=== PATIENT | female | born 1965 | race Caucasian/White ===

== ENCOUNTER 2017-03-31 05:01 | Inpatient (IN) | payer BC ==
--- NOTE | ~2017-03-31 | OP ---
Record Of Operation [facility] [address] [place]. [address] NAME: FLAKO FITZGERALD : 63 STATUS : ADM IN PAT#: [id number] AGE: 51 ADM/REG DATE : 03/31/17 MR#: [id number] REPORT SERV DATE: 03/31/17 DICTATED BY: JULIA CARMEN DATE: 03/31/17 REPORT STATUS : Draft TRANSCRIBED BY: MODL DATE: 03/31/17 DATE OF PROCEDURE: 03/31/2017 PREOPERATIVE DIAGNOSES: 1. History of rectal cancer and pelvic radiation. 2. Status post abdominoperineal resection with perineal wound defect. POSTOPERATIVE DIAGNOSES: 1. History of rectal cancer and pelvic radiation. 2. Status post abdominoperineal resection with perineal wound defect. PROCEDURE: Closure of perineal wound defect with right vertical rectus abdominis myocutaneous flap. RESIDENT: Anshul Hubbard MD. ANESTHESIA: General endotracheal. COMPLICATIONS: None. ESTIMATED BLOOD LOSS: 50 mL. INDICATION FOR PROCEDURE: The patient is a 51-year-old female with history of rectal cancer. She has undergone preoperative chemotherapy and radiation therapy. She is now appropriate for a combined procedure with Dr. Pineda, who will perform abdominoperineal resection, following which I will close the defect with a vascularized flap to promote healing. DESCRIPTION OF PROCEDURE: Consent was obtained in the preoperative area. She was taken to the operating room and underwent general anesthesia. Her abdomen was prepped and draped in the usual fashion. She underwent abdominoperineal resection by Dr. Pineda. Evaluation at that point reveals a lower midline laparotomy. A flap was designed over the right rectus abdominis muscle extending from the superior aspect of the lower midline incision, elliptically backed down to the lower portion of the incision. This designed skin island was incised with a scalpel. Electrocautery was used to dissect through the soft tissues to the anterior rectus sheath. The anterior rectus sheath was then incised over the rectus muscle surrounding the skin flap. The rectus muscle was then divided superiorly at the costal margin and elevated from the posterior rectus sheath from superior to inferior. The inferior epigastric vessels were protected throughout the course. The flap was noted to have good viability. Once the flap was fully mobilized down to the pubic bone, an incision was made into the posterior rectus sheath. The VRAM flap was then passed through this incision in the posterior rectus sheath and rotated through the pelvis to the perineal defect. Notably, the posterior portion of the vagina had been repaired by Dr. Pineda. A portion of the VRAM flap at the superior aspect just behind the vaginal repair was de- epithelialized due to redundancy. This leaving a good bulk tissue to reinforce the vaginal repair. Next, the incision in the posterior rectus sheath was partially repaired by suturing it to the anterior sheath to preclude any hernia formation. Next, the anterior Record Of Operation [facility] [address] [facility] [place]. [address] NAME: FLAKO FITZGERALD : 63 STATUS : ADM IN [facility]#: [id number] AGE: 51 ADM/REG DATE : 03/31/17 MR#: [id number] REPORT SERV DATE: 03/31/17 DICTATED BY: JULIA CARMEN DATE: 03/31/17 REPORT STATUS : Draft TRANSCRIBED BY: MODL DATE: 03/31/17 sheath of the rectus muscle was repaired with #1 PDS suture. A NICHOLAS drain was placed just deep to the perineal flap and brought out through the posterior portion of the perineal wound. Next, the VRAM flap was inset to the perineal defect in layers using buried inverted Vicryl sutures. The skin was also closed with interrupted Vicryl sutures. At the conclusion of the procedure, the patient had excellent perfusion to the flap with good contour and viability. The remainder of the abdomen was closed and colostomy completed by Dr. Pineda. The patient tolerated the procedure well. She was extubated and transported to the recovery area. She will be admitted to the hospital. EDWIN/CONNIE Julia Carmen M.D. / [id number] CC: Rosa Isela Cabezas M.D. NO PCP
--- NOTE | ~2017-03-31 | DS ---
Discharge Summary [facility] [address] [place]. [address] NAME: FLAKO FITZGERALD : 63 STATUS : DIS IN PAT#: [id number] AGE: 51 ADM/REG DATE : 03/31/17 MR#: [id number] REPORT SERV DATE: 04/19/17 DICTATED BY: LEIF CABEZAS DATE: 04/15/17 REPORT STATUS : Draft TRANSCRIBED BY: CONNIE DATE: 04/15/17 Data Collection from hospitalization DISCHARGE DIAGNOSES: 1. T4 rectal cancer, status post neoadjuvant therapy. 2. Obesity. 3. Fecal incontinence. 4. Hypothyroidism. 5. Anemia. CONSULTATIONS: Gene Carmen M.D. PROCEDURES PERFORMED: 1. Closure of perineal wound defect with right vertical rectus abdominis myocutaneous flap on 03/31/2017. 2. Planned abdominoperineal resection with VRAM flap converted to posterior vaginectomy with posterior exoneration with frozen section on 03/31/2017. PATHOLOGY: Perirectal tissue right lateral excision - no tumor seen. Sigmoid colon and rectum with anus and posterior vaginal wall resection - adenocarcinoma, status post chemo and radiation therapy. MEDICATIONS: Flexeril 10 mg three times a day as needed, Duragesic one patch topically every 48 hours, [place] 7.5/325 one to two tablets every four to six hours as needed, Synthroid 75 mcg every morning, and oxycodone 10 mg every six hours as needed. CONDITION AT DISCHARGE: Stable. DISPOSITION: The patient was discharged home to be followed by home health care on a clear liquid diet that would be advanced as tolerated and activities as instructed. She would follow up with me one week following discharge and would follow up with Dr. Gene Carmen on 04/20/2017. HOSPITAL COURSE: This is a 51-year-old female who is status post posterior exenteration for perforated rectal cancer. She is status post neoadjuvant therapy. Treatment options were discussed and it was elected to proceed with surgical intervention. She was admitted to the hospital at this time for further evaluation and treatment. Upon admission, she was taken to the operating room where she underwent the above-mentioned procedures by myself and Dr. Gene Carmen. She tolerated this well, and there were no complications. On postop day #1, she was sleepy after receiving IV Dilaudid. She had better pain control. Her incision was clean, dry, and intact. She was encouraged to ambulate. Over the next couple of days, she began to tolerate clear liquids. Pain control improved. She remained on the PLUGMAN. We encouraged her to mobilize. We were awaiting bowel function. The flap was pink and viable. Her drains remained in place. Discharge planning was performed. There was no ostomy output yet and she was not passing flatus. She continued to tolerate clear liquids. The Barber catheter was removed. Discharge planning was performed. On 04/04/2017, she was passing flatus. Her incisions were clean, dry, and Discharge Summary [address] [address] NAME: FLAKO FITZGERALD : 63 STATUS : DIS IN [facility]#: [id number] AGE: 51 ADM/REG DATE : 03/31/17 MR#: [id number] REPORT SERV DATE: 04/19/17 DICTATED BY: LEIF CABEZAS DATE: 04/15/17 REPORT STATUS : Draft TRANSCRIBED BY: CONNIE DATE: 04/15/17 intact. Discharge instructions were given. Due to her improved and stable condition, she was discharged home to be followed by home health care with the above-stated instructions. Information collected by: Cheri Walden I submit the above information as my discharge summary. SOFÍA/CONNIE Leif Cabezas M.D. / [id number] CC: Anthony Noble M.D. Ronda Huisman, NP
--- NOTE | ~2017-03-31 | OP ---
Record Of Operation [facility] [address] [place]. [address] NAME: FLAKO FITZGERALD : 63 STATUS : ADM IN PAT#: [id number] AGE: 51 ADM/REG DATE : 03/31/17 MR#: [id number] REPORT SERV DATE: 04/04/17 DICTATED BY: LEIF CABEZAS DATE: 03/31/17 REPORT STATUS : Draft TRANSCRIBED BY: CONNIE DATE: 03/31/17 DATE OF PROCEDURE: PREPROCEDURE DIAGNOSIS: T4 rectal cancer, status post neoadjuvant therapy. POSTPROCEDURE DIAGNOSIS: T4 rectal cancer, status post neoadjuvant therapy. PROCEDURE: Planned abdominoperineal resection with VRAM flap, converted to posterior vaginectomy with posterior exoneration with frozen section. DESCRIPTION OF PROCEDURE: The patient was taken to the operating room, induced under general anesthesia, placed into lithotomy, prepped and draped in the usual sterile fashion. The anus had been sewn closed. Prior to prepping and draping, Barber catheter was placed and the patient had a visible fistular connection on the right buttock, which communicated with the tumor. The incision was made 2 cm above the umbilicus to the level of the pubic symphysis. I am going to apply a modifier 22 to this procedure due to the fact that the patient had a gastric sleeve. She had extreme redundancy of tissue, which did make the surgery very difficult. Once the incision was extended down to the level of the fascia, the anterior fascia was opened between two Kochers, and posterior fascia was opened between two hemostats. Of note, the patient had several hernias, one which was incarcerated omentum which had to be taken down in order to proceed with surgery. Once this was accomplished, then the small bowel and the colon were packed into the epigastrium. A Bookwalter retractor was used, and the sigmoid colon was dissected free from the lateral attachments of the left retroperitoneum. The ureter was easily identified. Then, a window was made in the mesentery from the sacral promontory to the SIDDHARTHA. This was connected medial to lateral, again visualizing the ureter. The SIDDHARTHA was taken with a clamp, cut, and tie technique using 2-0 Vicryl ties and then a total mesorectal excision was performed, which included extralevator dissection. There was a lot of edema in the tissue, a lot of redundancy, this made dissection very difficult. From above, the dissection reached the level of the levator ani muscles, but the fibrosis of the rectum due to radiation would not allow the rectum to be compressed and this made it very difficult to come through Waldeyer fascia and angle up or anteriorly towards the anus. The uterus was elevated up out of the pelvis. Dissection went circumferential, anterior dissecting the vagina off the rectum. However, this was extremely difficult because the rectovaginal septum appeared to be obliterated due to radiation or tumor. At this point, the descending colon was transected using a blue load of the Endo-RITCHIE. Intervening mesentery taken with Harmonic scalpel, it was packed out of the way. Dr. Carmen began above, mobilizing the VRAM flap, please see his dictation for that portion of the procedure. Dr. Pineda went below. A katrin-shaped incision was made from the perineal body to 3 cm posterior to the anus. This did include the fistula tract, and great care was taken in excising the specimen en bloc. Once lateral dissection was performed to the level of the coccyx and posteriorly, great care was taken in developing the plane in the presacral space due to the patient's laxity of tissue superficially and fibrotic scar which allowed very little mobilization. Once posteriorly, the pelvis was encountered. The lap pad was brought out through the pelvis. Circumferential dissection was performed laterally. Portions of the levator muscles had to be taken en bloc with the specimen and then anteriorly, this dissection was extremely difficult because the Record Of Operation [facility] [address] [place]. [address] NAME: FLAKO FITZGERALD : 63 STATUS : ADM IN PAT#: [id number] AGE: 51 ADM/REG DATE : 03/31/17 MR#: [id number] REPORT SERV DATE: 04/04/17 DICTATED BY: LEIF CABEZAS DATE: 03/31/17 REPORT STATUS : Draft TRANSCRIBED BY: MODL DATE: 03/31/17 rectovaginal septum was basically obliterated. During this process, three colotomies were made, these were closed with [id number] 3-0 Vicryl suture, and then the decision was made simply to perform a posterior vaginectomy to get an en bloc specimen. I spoke with Dr. Nichole taking a lateral aspect near the fistula tract to make sure that, that margin was clear. He performed a frozen, which was negative, and surgery proceeded. Once the posterior vaginal wall was taken en bloc with the specimen, the specimen was delivered through the legs. Hemostasis was achieved. Dr. Carmen brought the VRAM flap out to the perineum. Dr. Pineda closed the vaginal mucosa to the level of the introitus and positions were changed. At this point, Dr. Pineda re-gowned and gloved. Dr. Carmen placed a NICHOLAS drain from below. Dr. Pineda placed one from above in the pelvis, bringing it out through a gap in the fascia. The fascial sleeve of the rectus had already been closed. The fascia was closed with a #2 Prolene from distal to middle, proximal to middle, tying in the center, irrigating the wound. Interrupted 3-0 Vicryl sutures were used to approximate the tissue, especially due to the laxity to make sure that the umbilicus did remain in its original position. This was accomplished after the colostomy site was created, placing a Ariel on the fascia, Ariel on the dermis, and an Allis on the prior marked skin site. A circular incision was made with cautery, and then the incision was extended down to the level of the fascia. Anterior fascia was opened two fingerbreadths. The rectus muscles were spread in the direction of the fibers, and the posterior fascia was opened over two fingerbreadths. A [place] was placed external to internal, grasping the stapled end of the descending colon, and this was brought out through the colostomy site. At this point, all five lap pads were removed, and the fascia was closed. The dermis was closed with interrupted stitches. The skin was closed with salvador. The NICHOLAS drain was sewn in place with a 4-0 nylon and salvador to the skin. The abdomen was cleansed and an Airstrip was placed over the incision, followed by a green towel. The colostomy was matured by removing the staple line, and then interrupted 3-0 Vicryl was used for the dermal stitch and full-thickness colostomy in four quadrants, interrupteds in between each, and the colostomy appliance was cut to size and placed on the abdomen. Dr. Hubbard, the resident, finished the stitches of the perineum, and Dr. Pineda placed a dressing over the NICHOLAS and attached to the NICHOLAS bulb. The patient tolerated the procedure well. DILCIA/CONNIE Leif Cabezas M.D. / [id number] CC: Anthony Noble M.D. Davey B. Daniel, M.D. John Wahba, NP [facility]
--- NOTE | ~2017-03-31 | HP ---
History And Physical [facility] [id number] [place]. [address] NAME: FLAKO FITZGERALD : 63 STATUS : ADM IN [facility]#: [id number] AGE: 51 ADM/REG DATE : 03/31/17 MR#: [id number] REPORT SERV DATE: 03/31/17 DICTATED BY: LEIF GALLO DATE: 03/31/17 REPORT STATUS : Draft TRANSCRIBED BY: CONNIE DATE: 03/31/17 DATE OF ADMISSION: 03/31/2017 REASON FOR ADMISSION: Status post posterior exenteration for perforated rectal cancer, status post neoadjuvant therapy. PAST MEDICAL HISTORY: Obesity, status post gastric bypass, fecal incontinence, and rectal cancer. PRIOR SURGERIES: x3, gastric sleeve, and tubal ligation. SOCIAL HISTORY: Does not smoke or drink. She is single. FAMILY HISTORY: Significant for heart disease, breast cancer, diabetes, hypertension, and myasthenia gravis. ALLERGIES: LATEX. MEDICATIONS: Dilaudid, Philipp, and fentanyl patch. REVIEW OF SYSTEMS: As stated in the HPI, otherwise, negative. PHYSICAL EXAMINATION: VITAL SIGNS: 70; 90/60; BMI of 29. GENERAL: Alert white female, in no acute distress. HEENT: Normocephalic, atraumatic. EOMI. PERRLA. Oropharynx is clear. NECK: Supple. No lymphadenopathy. LUNGS: Clear to auscultation bilaterally. HEART: Regular rate and rhythm. ABDOMEN: Severe redundancy of skin secondary to a large amount of weight loss with the gastric sleeve. She has laparoscopic incisions which are visible. EXTREMITIES: Moves all extremities well. NEUROLOGIC: Cranial nerves 2 through 12 are intact. SKIN: No rashes. 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 ASSESSMENT AND PLAN: A 51-year-old female with rectal cancer, status post neoadjuvant therapy. Plan is for APR, however, posterior exenteration was necessary due to presumed tumor invasion into the posterior vaginal wall. I have discussed the risks, benefits, and alternatives. The patient understands and is willing to proceed. DILCIA/CONNIE History And Physical [address] [place]. [address] NAME: FLAKO FITZGERALD : 63 STATUS : ADM IN [facility]#: [id number] AGE: 51 ADM/REG DATE : 03/31/17 MR#: [id number] REPORT SERV DATE: 03/31/17 DICTATED BY: LEIF GALLO DATE: 03/31/17 REPORT STATUS : Draft TRANSCRIBED BY: MODL DATE: 03/31/17 Leif Gallo M.D. / [id number] CC: eLif Gallo M.D.
[~2017-03-31 05:01] MED LIST: DURA75 TOP; OXYIR5 MG PO; SYN075 PO
[2017-03-31 06:16] LABS: BASOPHILS 0.3 %; BASOPHILS ABSOLUTE 0.01 10/3/uL (0.0-0.16); EOSINOPHILS 6.6 %; EOSINOPHILS ABSOLUTE 0.26 10/3/uL (0.0-0.53); HEMATOCRIT 35.4 % (36.0-48.0); HEMOGLOBIN 11.7 g/dL (12.0-16.0); IMMATURE GRANULOCYTES 0.5 %; IMMATURE GRANULOCYTES ABSOLUTE 0.02 10/3/uL (0.0-0.11); LYMPHOCYTES 9.7 %; LYMPHOCYTES ABSOLUTE 0.38 10/3/uL (0.67-4.30); MANUAL DIFF NO %; MEAN CORPUS HGB CONC 33.1 g/dL (32.0-36.0); MEAN CORPUSCULAR HEMOGLOB 32.9 pg (26.0-34.0); MEAN CORPUSCULAR VOLUME 99.4 fL (80-100); MEAN PLATELET VOLUME 8.9 fL (9.2-13.0); MONOCYTES 14.3 %; MONOCYTES ABSOLUTE 0.56 10/3/uL (0.21-1.20); NEUTROPHILS 68.6 %; NEUTROPHILS ABSOLUTE 2.68 10/3/uL (2.02-8.40); PLATELET COUNT 261 10/3/uL (150-400); RBC DISTRIBUTION WIDTH 12.2 % (12.0-16.0); RED CELL COUNT 3.56 10/6/uL (4.0-5.6); WHITE BLOOD CELLS 3.9 10/3/uL (4.5-10.5)
[2017-03-31 06:38] LABS: PLATELET ESTIMATE ADQ (ADEQUATE)
[2017-03-31 13:51] LABS: HEMATOCRIT 26.6 % (36.0-48.0)
[2017-04-01 06:23] LABS: BASOPHILS 0.1 %; BASOPHILS ABSOLUTE 0.01 10/3/uL (0.0-0.16); EOSINOPHILS 0 %; HEMATOCRIT 22.8 % (36.0-48.0); HEMOGLOBIN 7.6 g/dL (12.0-16.0); IMMATURE GRANULOCYTES 0.1 %; IMMATURE GRANULOCYTES ABSOLUTE 0.01 10/3/uL (0.0-0.11); LYMPHOCYTES 4.1 %; LYMPHOCYTES ABSOLUTE 0.31 10/3/uL (0.67-4.30); MANUAL DIFF NO %; MEAN CORPUS HGB CONC 33.3 g/dL (32.0-36.0); MEAN CORPUSCULAR VOLUME 99.1 fL (80-100); MEAN PLATELET VOLUME 8.8 fL (9.2-13.0); MONOCYTES 9.3 %; NEUTROPHILS 86.4 %; NEUTROPHILS ABSOLUTE 6.48 10/3/uL (2.02-8.40); PLATELET COUNT 229 10/3/uL (150-400); RBC DISTRIBUTION WIDTH 12.2 % (12.0-16.0); WHITE BLOOD CELLS 7.5 10/3/uL (4.5-10.5)
[2017-04-01 06:32] LABS: BUN (BLOOD UREA NITROGEN) 9 MG/DL (6-23); CHLORIDE, SERUM 109 MMOL/L (96-112); CO2 (CARBON DIOXIDE) 26 MMOL/L (24-34); CREATININE 0.58 MG/DL (0.55-1.02); GFR AFRICAN AMERICAN 123 ML/MIN (>=60); GFR NON AFRICAN AMERICAN 106 ML/MIN (>=60); GLUCOSE, SERUM 105 MG/DL (60-99); POTASSIUM, SERUM 4.3 MMOL/L (3.5-5.3); SODIUM, SERUM 141 MMOL/L (135-148)
[2017-04-01 16:33] LABS: HEMOGLOBIN 9.1 g/dL (12.0-16.0)
[2017-04-01 16:39] LABS: HEMATOCRIT 27.8 % (36.0-48.0)
[2017-04-02 06:05] LABS: BASOPHILS 0.2 %; BASOPHILS ABSOLUTE 0.01 10/3/uL (0.0-0.16); EOSINOPHILS 4.4 %; EOSINOPHILS ABSOLUTE 0.25 10/3/uL (0.0-0.53); HEMOGLOBIN 8.2 g/dL (12.0-16.0); IMMATURE GRANULOCYTES 0.2 %; IMMATURE GRANULOCYTES ABSOLUTE 0.01 10/3/uL (0.0-0.11); LYMPHOCYTES 5.2 %; LYMPHOCYTES ABSOLUTE 0.29 10/3/uL (0.67-4.30); MEAN CORPUS HGB CONC 32.8 g/dL (32.0-36.0); MEAN CORPUSCULAR HEMOGLOB 32.8 pg (26.0-34.0); MEAN PLATELET VOLUME 8.8 fL (9.2-13.0); MONOCYTES 8.9 %; NEUTROPHILS 81.1 %; NEUTROPHILS ABSOLUTE 4.56 10/3/uL (2.02-8.40); PLATELET COUNT 215 10/3/uL (150-400); RBC DISTRIBUTION WIDTH 12.2 % (12.0-16.0); WHITE BLOOD CELLS 5.6 10/3/uL (4.5-10.5)
[2017-04-02 06:07] LABS: MANUAL DIFF NO %
[2017-04-02 06:21] LABS: CALCIUM, SERUM 8.1 MG/DL (8.5-10.4); CHLORIDE, SERUM 108 MMOL/L (96-112); CO2 (CARBON DIOXIDE) 28 MMOL/L (24-34); CREATININE 0.49 MG/DL (0.55-1.02); GFR AFRICAN AMERICAN 130 ML/MIN (>=60); GFR NON AFRICAN AMERICAN 112 ML/MIN (>=60); GLUCOSE, SERUM 98 MG/DL (60-99); POTASSIUM, SERUM 4.2 MMOL/L (3.5-5.3); SODIUM, SERUM 139 MMOL/L (135-148)
[2017-04-02 06:23] LABS: BUN (BLOOD UREA NITROGEN) 5 MG/DL (6-23)
[2017-04-03 06:52] LABS: BUN (BLOOD UREA NITROGEN) 3 MG/DL (6-23); CHLORIDE, SERUM 110 MMOL/L (96-112); CO2 (CARBON DIOXIDE) 26 MMOL/L (24-34); CREATININE 0.45 MG/DL (0.55-1.02); GFR AFRICAN AMERICAN 134 ML/MIN (>=60); GFR NON AFRICAN AMERICAN 115 ML/MIN (>=60); GLUCOSE, SERUM 110 MG/DL (60-99); POTASSIUM, SERUM 4.4 MMOL/L (3.5-5.3); SODIUM, SERUM 140 MMOL/L (135-148)
[2017-04-04] MEDS ORDERED: FLEX PO (12:02)
[2017-04-04] MEDS ORDERED: NORCO1 TA2 PO (12:02)
== END 2017-04-04 15:03 | disposition home health service (06) | DRG 330 ==
LOC: SDC/OF 05:01 → 5SO 14:42
PROVIDERS: Surgery; Surgery Plastic and Reconstructive Surgery
PROC: 0D1K0Z4 Bypass Ascending Colon to Cutaneous, Open Approach (ICD-10-PCS; 2017-03-31)
PROC: 0KXK0Z6 Transfer Right Abdomen Muscle, Transverse Rectus Abdominis Myocutaneous Flap, Open Approach (ICD-10-PCS; 2017-03-31)
PROC: 3E0T3CZ (ICD-10-PCS; 2017-03-31)
PROC: 0DTP0ZZ Resection of Rectum, Open Approach (ICD-10-PCS; principal; 2017-03-31 06:45)
PROC: 0DTN0ZZ Resection of Sigmoid Colon, Open Approach (ICD-10-PCS; 2017-03-31 06:45)
PROC: 0DTQ0ZZ Resection of Anus, Open Approach (ICD-10-PCS; 2017-03-31 06:45)
DX: C20 Malignant neoplasm of rectum (principal); D62 Acute posthemorrhagic anemia; E66.9 Obesity, unspecified; Z98.84 Bariatric surgery status; Z82.49 Family history of ischemic heart disease and other diseases of the circulatory system; Z80.3 Family history of malignant neoplasm of breast; Z83.3 Family history of diabetes mellitus; Z91.040 Latex allergy status; Z92.21 Personal history of antineoplastic chemotherapy; Z92.3 Personal history of irradiation
CPT/HCPCS: 36415; 80048; 84703; 85014; 85018; 85025; 86850; 86900; 86901; 86920; 88305; 88309; 88331; 88341; 88342; 93005; 97161-GP; A9270-GY; J0690; J1170; J2250; J2370; J2405; J2550; J2710; J2795; J3010; P9045